=== PATIENT | male | born 1960 | race Caucasian/White ===

== ENCOUNTER 2019-12-22 14:09 | Emergency (ER) | payer BC ==
[2019-12-22] MEDS ORDERED: IBUPROFEN 800 MG TABLET PO ONE (15:13)
--- NOTE | 2019-12-22 15:23 | ER Document Report ---
ED Medical Screen (RME) - General Chief Complaint: Headache Stated Complaint: HEADACHE/BLOOD PRESSURE ISSUES Time Seen by Provider: 12/22/19 15:04 Mode of Arrival: Ambulatory Information source: Patient Notes: 59-year-old male who is relatively healthy presents emergency department with reports that he started having a headache a couple hours ago. 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 He went to have his school nurse take his blood pressure and it was extremely high. Patient reports he takes arginine and amino acid and has not taken it for a month. He reports he had a little bit of blurred vision but all symptoms have resolved now. He still reports he has a headache. BP 159/122. Denies fever vomiting diarrhea. Denies chest pain. Has not taken anything for the headache. Denies trauma. I consulted Dr. arce who advised labs and CT of head and neck, wait on blood pressure medication at this time. Monitor your blood pressure. Your blood pressure was elevated today. This may be because you were anxious, in pain or because you need medication. It is important to follow up with your primary care provider for full evaluation. TRAVEL OUTSIDE OF THE [place] IN LAST 30 DAYS: No - Related Data Allergies/Adverse Reactions: No Known Allergies Allergy (Verified 12/22/19 15:04) Past Medical History - Social History Chew tobacco use (# tins/day): No - Past Medical History Cardiac Medical History: Reports: Hx Hypertension Psychiatric Medical History: Denies: Hx Depression Past Surgical History: Reports: Hx Inguinal Hernia - Bilateral inguinal hernia repairs in his 20s. - Immunizations Hx Diphtheria, Pertussis, Tetanus Vaccination: Yes Physical Exam - Vital signs Vitals: Temp Pulse Resp BP Pulse Ox 98.7 F 86 16 167/117 H 98 12/22/19 14:17 12/22/19 14:17 12/22/19 14:17 12/22/19 14:17 12/22/19 14:17 Course - Vital Signs Vital signs: Temp Pulse Resp BP Pulse Ox 98.7 F 86 16 159/122 H 98 12/22/19 14:17 12/22/19 14:17 12/22/19 14:17 12/22/19 15:14 12/22/19 14:17
--- NOTE | 2019-12-22 15:40 | RADIOLOGY REPORT (SQ) ---
EXAM DESCRIPTION: CHEST 2 VIEWS COMPLETED DATE/TIME: 12/22/2019 3:21 pm REASON FOR STUDY: high bp COMPARISON: 01/30/2016 EXAM PARAMETERS: NUMBER OF VIEWS: two views TECHNIQUE: Digital Frontal and Lateral radiographic views of the chest acquired. RADIATION DOSE: NA LIMITATIONS: none FINDINGS: LUNGS AND PLEURA: No opacities, masses or pneumothorax. No pleural effusion. MEDIASTINUM AND HILAR STRUCTURES: No masses or contour abnormalities. HEART AND VASCULAR STRUCTURES: Heart normal size. No evidence for failure. BONES: No acute findings. HARDWARE: None in the chest. OTHER: No other significant finding. IMPRESSION: NO ACUTE RADIOGRAPHIC FINDING IN THE CHEST. TECHNICAL DOCUMENTATION: JOB ID: [id number] 2010 [employer]- All Rights Reserved Reading location - IP/workstation name: [email or web address]
--- NOTE | 2019-12-22 15:41 | RADIOLOGY REPORT (SQ) ---
EXAM DESCRIPTION: CT HEAD WITHOUT COMPLETED DATE/TIME: 12/22/2019 3:32 pm REASON FOR STUDY: high bp FAIR COMPARISON: None. TECHNIQUE: Axial images acquired through the brain without intravenous contrast. Images reviewed wi th bone, brain and subdural windows. Additional sagittal and coronal reconstructions were generated. Images stored on PACS. All CT scanners at this facility use dose modulation, iterative reconstruction, and/or weight based d osing when appropriate to reduce radiation dose to as low as reasonably achievable (ALARA). [facility]: Dose Right [facility]: CareDose [facility]: Dose Right [facility]: Teradose 4D [facility]: Smart [employer] RADIATION DOSE: CT Rad equipment meets quality standard of care and radiation dose reduction techniq ues were employed. CTDIvol: 53.2 mGy. DLP: 1070 mGy-cm. mGy. LIMITATIONS: None. FINDINGS: VENTRICLES: Normal size and contour. CEREBRUM: No masses. No hemorrhage. No midline shift. No evidence for acute infarction. Normal gra y/white matter differentiation. No areas of low density in the white matter. CEREBELLUM: No masses. No hemorrhage. No alteration of density. No evidence for acute infarction. EXTRAAXIAL SPACES: No fluid collections. No masses. ORBITS AND GLOBE: No intra- or extraconal masses. Normal contour of globe without masses. CALVARIUM: No fracture. PARANASAL SINUSES: Prominent mucous membrane thickening and soft tissue filling the left maxillary an d bilateral ethmoid and frontal sinuses. Mild mucous membrane thickening in the right maxillary sinu s. SOFT TISSUES: No mass or hematoma. OTHER: No other significant finding. IMPRESSION: 1. NORMAL BRAIN CT WITHOUT CONTRAST. 2. DIFFUSE SINUS DISEASE. EVIDENCE OF ACUTE STROKE: NO. COMMENT: Quality ID # [id number]: Final reports with documentation of one or more dose reduction techniques (e.g., Automated exposure control, adjustment of the mA and/or kV according to patient size, use of iterative reconstruction technique) TECHNICAL DOCUMENTATION: JOB ID: [id number] 2010 [employer]- All Rights Reserved Reading location - IP/workstation name: [email or web address]
[2019-12-22 16:22] LABS: ABSOLUTE BASOPHILS # (AUTO) 0.1 10^3/uL (0.0-0.2); ABSOLUTE EOSINOPHILS # (AUTO) 0.1 10^3/uL (0.0-0.6); ABSOLUTE LYMPHOCYTES (AUTO) 1.2 10^3/uL (0.5-4.7); ABSOLUTE MONOCYTES (AUTO) 0.3 10^3/uL (0.1-1.4); ABSOLUTE NEUT (AUTO) 4.7 10^3/uL (1.7-8.2); BASOPHILS % (AUTO) 0.9 % (0-2); EOSINOPHILS % (AUTO) 1.4 % (0-6); HEMATOCRIT 48.4 % (37.9-51.0); LYMPHOCYTES % (AUTO) 18.7 % (13-45); MEAN CORPUSCULAR HEMOGLOBIN 31.9 pg (27.0-33.4); MEAN CORPUSCULAR HGB CONC 35.2 g/dL (32.0-36.0); MEAN CORPUSCULAR VOLUME 91 fl (80-97); MONOCYTES % (AUTO) 5.1 % (3-13); PLATELET COUNT 210 10^3/uL (150-450); RED BLOOD COUNT 5.33 10^6/uL (4.35-5.55); RED CELL DISTRIBUTION WIDTH 13.4 % (11.5-14.0); SEGMENTED NEUTROPHILS % (AUTO) 73.9 % (42-78); TOTAL CELLS COUNTED % (AUTO) 100 %; WHITE BLOOD COUNT 6.4 10^3/uL (4.0-10.5)
[2019-12-22 16:38] LABS: ALBUMIN 4.7 g/dL (3.5-5.0); ALKALINE PHOSPHATASE 79 U/L (38-126); ANION GAP 10 (5-19); ASPARTATE AMINO TRANSFERASE 33 U/L (17-59); BILIRUBIN,DIRECT 0.2 mg/dL (0.0-0.4); BILIRUBIN,TOTAL 0.6 mg/dL (0.2-1.3); BLOOD UREA NITROGEN 16 mg/dL (7-20); CALCIUM 9.4 mg/dL (8.4-10.2); CARBON DIOXIDE 32 mmol/L (22-30); CHLORIDE 98 mmol/L (98-107); GLUCOSE 91 mg/dL (75-110); POTASSIUM 4.5 mmol/L (3.6-5.0); TOTAL PROTEIN 7.9 g/dL (6.3-8.2)
[2019-12-22 16:43] LABS: APPEARANCE,URINE CLEAR; BILIRUBIN,URINE NEGATIVE (NEGATIVE); COLOR,URINE STRAW; GLUCOSE, URINE NEGATIVE (NEGATIVE); KETONES,URINE NEGATIVE (NEGATIVE); LEUKOCYTE ESTERASE,URINE NEGATIVE (NEGATIVE); NITRITE,URINE NEGATIVE (NEGATIVE); PROTEIN,URINE NEGATIVE (NEGATIVE); URINE SPECIFIC GRAVITY 1.009; UROBILINOGEN,URINE NEGATIVE mg/dL (<2.0)
[2019-12-22 17:02] LABS: ADD MANUAL MICROSCOPIC YES; WBC,URINE RARE /HPF
--- NOTE | 2019-12-22 17:13 | ER Document Report ---
ED General - General Chief Complaint: Headache Stated Complaint: HEADACHE/BLOOD PRESSURE ISSUES Time Seen by Provider: 12/22/19 15:04 Mode of Arrival: Ambulatory TRAVEL OUTSIDE OF THE [place] IN LAST 30 DAYS: No - HPI Notes: Patient is a 59-year-old male who presents emergency department for evaluation of headache, nausea, blurred vision, elevated blood pressure. The patient stat es he had onset of a headache in the glabellar region. He had blurriness in his right eye. He states that he could feel his ears burning, which is an indicator to him that his blood pressure is elevated. He had his blood pressure checked in the nurse's office and it was in the 180s over 110s. He was sent here for further evaluation. The patient states that several years ago he was diagnosed with high blood pressure, but he only took medicine for a week. He states he started on arginine and has not had any blood pressure issues. He did have pain that he rated a 4 out of 5, he states that it improved significantly. His vision changes improved prior to arrival. He had a mild headache when evaluated earlier, which is nearly gone at this time. He normally runs in the 120s over 70s. On further questioning, the patient admits that he was in a very stressful situation at work. On discussing this his symptoms actually returned. - Related Data Allergies/Adverse Reactions: No Known Allergies Allergy (Verified 12/22/19 15:04) Home Medications: Arginine Past Medical History - General Information source: Patient - Social History Smoking Status: Never Smoker Chew tobacco use (# tins/day): No Family History: Reviewed & Not Pertinent Patient has suicidal ideation: No Patient has homicidal ideation: No - Past Medical History Cardiac Medical History: Reports: Hx Hypertension - unmedicated Psychiatric Medical History: Denies: Hx Depression Past Surgical History: Reports: Hx Inguinal Hernia - Bilateral inguinal hernia repairs in his 20s. - Immunizations Hx Diphtheria, Pertussis, Tetanus Vaccination: Yes Review of Systems - Review of Systems EENT: See HPI Neurological/Psychological: See HPI -: Yes All other systems reviewed and negative Physical Exam - Vital signs Vitals: Temp Pulse Resp BP Pulse Ox 98.7 F 86 16 167/117 H 98 12/22/19 14:17 12/22/19 14:17 12/22/19 14:17 12/22/19 14:17 12/22/19 14:17 - Notes Notes: Vital signs reviewed, please refer to chart. Head is normocephalic, atraumatic. Pupils equal round, reactive to light. Neck is supple without meningismus. Heart is regular rate and rhythm. Lungs are clear to auscultation bilaterally. Abdomen is soft, nontender, normoactive bowel sounds throughout. Extremities without cyanosis, clubbing. Posterior calves are nontender. Peripheral pulses are equal. Skin is warm and dry. Patient is awake, alert, oriented x3. Cranial nerves II - XII are grossly intact without focal neurological deficits. Strength is plus 5 out of 5 bilateral upper and lower extremities. Sensation is intact. Reflexes symmetrical. Intact [id number], rapid alternating movements, [id number]. Course - Re-evaluation Re-evalutation: 12/22/19 17:11 Patient presents the emergency department for evaluation. He had laboratory investigations and imaging as ordered through triage. Given the time of onset of his headache, CT scan of the head was ordered, and intracranial hemorrhage is essentially ruled out. He has a completely normal neurological exam. Laboratory investigations are ordered and pending at this time. He has pain that he rates a 1 out of 10 currently, which was actually worsened by talking about stressful situations at work. My strong suspicion is that this is all been brought about by stress. His blood pressure is moderately elevated at this time but not markedly so. We discussed the possibility of going back on medications. He states he would be more comfortable discussing this with his primary care doctor. We talked about stress management techniques and he voiced understanding. At this point patient is stable, we will continue to monitor. 12/22/19 17:53 Lab work is back and is unremarkable. Patient is feeling improved. Repeat neurological exam shows no deficits. I told him he needs to discuss whether or not antihypertensive medications would be appropriate, practice stress management techniques. He is amenable to this plan was discharged. He is to return to the ED with worsening. - Vital Signs Vital signs: Temp Pulse Resp BP Pulse Ox 98.7 F 86 16 156/113 H 98 12/22/19 14:17 12/22/19 14:17 12/22/19 14:17 12/22/19 16:21 12/22/19 14:17 - Laboratory Result Diagrams: 12/22/19 16:00 12/22/19 16:00 Laboratory results interpreted by me: 12/22/19 12/22/19 15:55 16:00 Carbon Dioxide 32 H Urine Ascorbic Acid 40 H - EKG Interpretation by Me Additional EKG results interpreted by me: 12/22/19 17:13 Sinus mechanism with rate of 73 bpm. Normal intervals, borderline left axis deviation, no acute ST changes concerning for ischemia or infarction. 12/22/19 17:57 Discharge - Discharge Clinical Impression: Elevated blood pressure reading, Stress Headache Qualifiers: Headache type: unspecified Headache chronicity pattern: acute headache Intractability: not intractable Qualified Code(s): R51 - Headache Condition: Stable Disposition: HOME, SELF-CARE Instructions: Headache ([facility]), High Blood Pressure ([facility]) Additional Instructions: Try to reduce your stress. Continue exercise, meditation. Follow-up with your primary care provider and discuss whether or not an antihypertensive medication would be appropriate. Return to the emergency department with worsening or new concerning symptoms of any sort.
[2019-12-22 18:19] VITALS: BP 154/105
--- NOTE | 2019-12-22 19:29 | EKG REPORT ---
SEVERITY:- OTHERWISE NORMAL ECG - SINUS RHYTHM BORDERLINE LEFT AXIS DEVIATION : Confirmed by: Jae Sotelo 22-Dec-2019 19:29:27
== END 2019-12-22 18:21 | disposition home or self-care (01) ==
LOC: ER 14:09
DX: R03.0 Elevated blood-pressure reading, without diagnosis of hypertension (principal); R51 Headache; R11.0 Nausea; F43.9 Reaction to severe stress, unspecified; H53.8 Other visual disturbances; Z79.899 Other long term (current) drug therapy
CPT/HCPCS: 36415; 70450; 71046; 80053; 81001; 84484; 85025; 93005; 93010; 99283